=== PATIENT | female | born 1935 | race Caucasian/White ===

== ENCOUNTER 2016-12-26 08:03 | Emergency (ER) | payer MEDICARE, BC ==
--- NOTE | 2016-12-26 09:01 | RAD ---
THREE VIEWS OF THE LEFT ANKLE: DATE: 12/26/16. COMPARISON: None. HISTORY: Pain, stepped wrong, injury. FINDINGS: The talar dome and ankle mortise appear intact. There is no displaced fracture or evidence of dislo cation seen. Lateral examination suggests a possible small ankle joint effusion. IMPRESSION: No displaced fracture or evidence of dislocation seen. POS: [facility]
--- NOTE | 2016-12-26 09:03 | RAD ---
THREE VIEWS OF THE LEFT FOOT: DATE: 12/26/16. COMPARISON: None. HISTORY: Stepped wrong, injury, pain. FINDINGS: There are prominent degenerative changes at the 1st metatarsophalangeal joint. There is no displace d fracture or dislocation. There is minimal enthesophyte formation at the insertion of the Achilles tendon. IMPRESSION: No displaced fracture or evidence of dislocation seen. POS: [facility]
== END 2016-12-26 09:32 | disposition home or self-care (01) ==
LOC: NAV ERS 08:03
DX: S93.602A Unspecified sprain of left foot, initial encounter (principal); S93.402A Sprain of unspecified ligament of left ankle, initial encounter; E03.9 Hypothyroidism, unspecified; I10 Essential (primary) hypertension; X58.XXXA Exposure to other specified factors, initial encounter